=== PATIENT | male | born 1945 | race Caucasian/White ===

== ENCOUNTER 2016-11-06 13:08 | Emergency (ER) | payer OTHER ==
[2016-11-06 13:34] LABS: BASOPHIL 0.3 % (0-2); EOSINOPHIL 3.9 % (0-7); HCT 46.9 % (42.0-52.0); HGB 15.3 g/dl (13.2-18.0); LYMPHOCYTE 24.1 % (15-48); MCH 31.2 pg (25.0-31.0); MCHC 32.6 g/dL (32.0-36.0); MCV 95.7 fL (78.0-100.0); MONOCYTE 12.4 % (0-12); MPV 9.5 fL (6.0-9.5); NEUTROPHIL 59.3 % (41-80); PLT 197 K/uL (150-400); RDW 14.6 % (11.5-14.0); WBC 7.5 K/uL (4.0-10.5)
[2016-11-06 13:45] LABS: INR 0.93 (0.9-1.2); PROTHROMBIN TIME 12.1 SECONDS (11.7-14.0); PTT 25.8 SECONDS (23.2-31.4)
[2016-11-06 13:52] LABS: BILIRUBIN - TOTAL 0.3 mg/dL (0.1-1.0); CREATININE 1.1 mg/dL (0.7-1.2); MAGNESIUM 2.33 mg/dL (1.40-2.10); POTASSIUM 4.6 mmol/L (3.5-5.1)
[2016-11-06 13:54] LABS: CKMB 2.69 ng/mL (0.97-4.94); MYOGLOBIN 103 ng/mL (26-65); PRO-BNP 23 pg/mL (0-125); TROPONIN T < 0.010 ng/mL
[2016-11-06 15:58] LABS: LACTIC ACID 0.7 mmol/L (0.5-2.2)
== END 2016-11-06 16:44 | disposition other institution (70) ==
LOC: FER 13:08
PROVIDERS: Internal Medicine
DX: J96.20 Acute and chronic respiratory failure, unspecified whether with hypoxia or hypercapnia (principal); I11.9 Hypertensive heart disease without heart failure; I25.10 Atherosclerotic heart disease of native coronary artery without angina pectoris; J44.9 Chronic obstructive pulmonary disease, unspecified; Z79.51 Long term (current) use of inhaled steroids; Z79.899 Other long term (current) drug therapy; Z95.5 Presence of coronary angioplasty implant and graft
CPT/HCPCS: 36415; 36600; 71010; 80053; 82550; 82553; 82803; 83605; 83735; 83874; 83880; 84484; 85025; 85379; 85610; 85730; 87040; 87077; 87184; 87205; 93005; 94640; J2930